=== PATIENT | female | born 1960 | race Caucasian/White ===

== ENCOUNTER → 2016-12-17 | Outpatient (CLI) | payer BC ==
--- NOTE | 2016-12-17 15:59 | RADIOLOGY REPORT (SQ) ---
EXAM DESCRIPTION: MRI LT LOWER JOINT WITHOUT COMPLETED DATE/TIME: 12/17/2016 3:28 pm REASON FOR STUDY: PAIN IN LEFT KNEE (M25.562) M25.561 PAIN IN RIGHT KNEE M25.562 PAIN IN LEFT KNEE COMPARISON: None. TECHNIQUE: Leftknee images acquired and stored on PACS. Multiplanar images include fat sensitive se quences as T1, water sensitive sequences as FST2 or STIR, cartilage sensitive sequences as FSPD, and gradient echo sequences. LIMITATIONS: Patient motion. FINDINGS: JOINT AND BURSAE: No effusion. BONE CORTEX AND MARROW: No alteration of signal to suggest marrow replacement. No worrisome bone lesi ons. No occult fracture. ACL: Intact. No degeneration or ganglion cyst. PCL: Intact. MCL: Intact. No periligamentous edema or fluid. LCL: Intact. No periligamentous edema or fluid. MEDIAL MENISCUS: Increased T2 signal posterior horn extends to the articular surface in the axial andreia ne. No displaced meniscal fragment identified. LATERAL MENISCUS: No tears. No abnormal signal. MEDIAL COMPARTMENT: Thinning of the articular cartilage. Subchondral cyst formation femoral condyle. Small osteophytes. LATERAL COMPARTMENT: Thinning of the articular cartilage. PATELLA: Thinning of the articular cartilage. Intact retinaculum. EXTENSOR MECHANISM: Intact. Quadriceps and patella tendons normal. SOFT TISSUES: Small amount of fluid between the medial head of the gastrocnemius and semimembranosus tendons extends into the superficial fascia. Maximum diameter 2 cm. OTHER: No other significant finding. IMPRESSION: 1. Technical limitations due to motion. 2. Horizontal tear posterior horn medial meniscus. 3. Chondromalacia. 4. Ruptured Plunkett cyst. TECHNICAL DOCUMENTATION: JOB ID: [id number] [employer]- All Rights Reserved
--- NOTE | 2016-12-17 16:19 | RADIOLOGY REPORT (SQ) ---
EXAM DESCRIPTION: MRI RT LOWER JOINT WITHOUT COMPLETED DATE/TIME: 12/17/2016 3:29 pm REASON FOR STUDY: PAIN IN RIGHT KNEE (M25.561) M25.561 PAIN IN RIGHT KNEE M25.562 PAIN IN LEFT KNE E COMPARISON: None. TECHNIQUE: Rightknee images acquired and stored on PACS. Multiplanar images include fat sensitive s equences as T1, water sensitive sequences as FST2 or STIR, cartilage sensitive sequences as FSPD, and gradient echo sequences. LIMITATIONS: Patient motion. FINDINGS: JOINT AND BURSAE: No effusion. BONE CORTEX AND MARROW: No alteration of signal to suggest marrow replacement. No worrisome bone lesi ons. No occult fracture. ACL: Intact. No degeneration or ganglion cyst. PCL: Intact. MCL: Intact. No periligamentous edema or fluid. LCL: Intact. No periligamentous edema or fluid. MEDIAL MENISCUS: Diminutive. Increased signal posterior horn extends to the articular surface in the axial plane. No displaced meniscal fragment identified. LATERAL MENISCUS: Intact. MEDIAL COMPARTMENT: Cartilage loss. Small osteophytes. Subchondral edema anteromedial margin femora l condyle. LATERAL COMPARTMENT: Cartilage relatively preserved. No bone bruises or reactive marrow edema. No ost eophytes. PATELLA: Thinning of the patellar cartilage with surface blistering medial to midline. Small osteoph ytes. Intact retinaculum. EXTENSOR MECHANISM: Intact. Quadriceps and patella tendons normal. SOFT TISSUES: Adjacent muscles and subcutaneous tissues normal. Normal flow void in popliteal artery and vein. OTHER: No other significant finding. IMPRESSION: 1. Technical limitations due to motion. 2. Horizontal tear posterior horn medial meniscus. 3. Chondromalacia. 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 TECHNICAL DOCUMENTATION: JOB ID: [id number] [employer]- All Rights Reserved
== END ==
LOC: RAD 14:00
PROVIDERS: ATTEND Physician Assistant
DX: M25.561 Pain in right knee (principal); M25.562 Pain in left knee; M94.261 Chondromalacia, right knee; M94.262 Chondromalacia, left knee

== ENCOUNTER 2017-06-23 13:18 | Inpatient (IN) | payer BC, OTHER ==
--- NOTE | 2017-06-23 15:03 | ER Document Report ---
ED Medical Screen (RME) - General Chief Complaint: Abdominal Pain Stated Complaint: ABDOMINAL PAIN Time Seen by Provider: 06/23/17 15:02 Mode of Arrival: Ambulatory Information source: Patient Notes: two days of ruq pain/nausea. no prev surgeries TRAVEL OUTSIDE OF THE [place] IN LAST 30 DAYS: No - Related Data Allergies/Adverse Reactions: No Known Allergies Allergy (Unverified 06/23/17 13:20) Past Medical History - Social History Frequency of alcohol use: None Drug Abuse: None Renal/ Medical History: Denies: Hx Peritoneal Dialysis Physical Exam - Vital signs Vitals: Temp Pulse Resp BP Pulse Ox 98.5 F 89 20 123/75 97 06/23/17 13:31 06/23/17 13:31 06/23/17 13:31 06/23/17 13:31 06/23/17 13:31 Course - Vital Signs Vital signs: Temp Pulse Resp BP Pulse Ox 98.5 F 89 20 123/75 97 06/23/17 13:31 06/23/17 13:31 06/23/17 13:31 06/23/17 13:31 06/23/17 13:31
[2017-06-23 15:35] LABS: ABSOLUTE EOSINOPHILS # (AUTO) 0.1 10^3/uL (0.0-0.6); ABSOLUTE MONOCYTES (AUTO) 0.5 10^3/uL (0.1-1.4); ABSOLUTE NEUT (AUTO) 7.9 10^3/uL (1.7-8.2); BASOPHILS % (AUTO) 0.5 % (0-2); EOSINOPHILS % (AUTO) 1.1 % (0-6); HEMOGLOBIN 14.3 g/dL (12.0-15.5); LYMPHOCYTES % (AUTO) 10.6 % (13-45); MEAN CORPUSCULAR HEMOGLOBIN 29.4 pg (27.0-33.4); MEAN CORPUSCULAR HGB CONC 34.1 g/dL (32.0-36.0); MEAN CORPUSCULAR VOLUME 86 fl (80-97); MONOCYTES % (AUTO) 4.8 % (3-13); PLATELET COUNT 266 10^3/uL (150-450); RED BLOOD COUNT 4.87 10^6/uL (3.72-5.28); RED CELL DISTRIBUTION WIDTH 13.7 % (11.5-14.0); TOTAL CELLS COUNTED % (AUTO) 100 %; WHITE BLOOD COUNT 9.6 10^3/uL (4.0-10.5)
[2017-06-23 15:40] LABS: APPEARANCE,URINE CLEAR; BILIRUBIN,URINE NEGATIVE (NEGATIVE); COLOR,URINE STRAW; GLUCOSE, URINE NEGATIVE (NEGATIVE); KETONES,URINE NEGATIVE (NEGATIVE); LEUKOCYTE ESTERASE,URINE NEGATIVE (NEGATIVE); NITRITE,URINE NEGATIVE (NEGATIVE); PROTEIN,URINE NEGATIVE (NEGATIVE); URINE SPECIFIC GRAVITY 1.003; UROBILINOGEN,URINE NEGATIVE mg/dL (<2.0)
[2017-06-23 15:55] LABS: BLOOD UREA NITROGEN 16 mg/dL (7-20); CALCIUM 9.6 mg/dL (8.4-10.2)
--- NOTE | 2017-06-23 15:55 | ER Document Report ---
ED GI/ - General Mode of Arrival: Ambulatory TRAVEL OUTSIDE OF THE [place] IN LAST 30 DAYS: No <OSIEL WILEY - Last Filed: 06/24/17 09:28> <PHILLIPANDREE Melinda - Last Filed: 06/24/17 09:32> - General Chief Complaint: Abdominal Pain Stated Complaint: ABDOMINAL PAIN Time Seen by Provider: 06/23/17 15:02 Notes: Patient is a 57 year old female presenting to the emergency department complaining of right upper quadrant abdominal pain onset last night. Patient states that her pain is only exacerbated after meals and describes it as sharp which radiates into her right shoulder. Patient further states that she has had similar episodes 2x this month. Patient denies a history of VT, Strokes, or gallbladder issues. Patient states she is currently on Zoloft. (OSIEL WILEY) - Related Data Allergies/Adverse Reactions: No Known Allergies Allergy (Unverified 06/23/17 13:20) Past Medical History - General Information source: Patient - Social History Smoking Status: Current Every Day Smoker Frequency of alcohol use: None Drug Abuse: None Family History: Reviewed & Not Pertinent Patient has suicidal ideation: No Patient has homicidal ideation: No <OSIEL WILEY - Last Filed: 06/24/17 09:28> Review of Systems - Review of Systems Constitutional: No symptoms reported EENT: No symptoms reported Cardiovascular: No symptoms reported Respiratory: No symptoms reported Gastrointestinal: See HPI, Abdominal pain Genitourinary: No symptoms reported Female Genitourinary: No symptoms reported Musculoskeletal: See HPI Skin: No symptoms reported Hematologic/Lymphatic: No symptoms reported Neurological/Psychological: No symptoms reported -: Yes All other systems reviewed and negative <OSIEL WILEY - Last Filed: 06/24/17 09:28> Physical Exam - General General appearance: Appears well, Alert In distress: None - HEENT Head: Normocephalic, Atraumatic Eyes: Normal Conjunctiva: Normal Pupils: PERRL Mucous membranes: Moist Neck: Normal - Respiratory Respiratory status: No respiratory distress Chest status: Nontender Breath sounds: Normal Chest palpation: Normal - Cardiovascular Rhythm: Regular Heart sounds: Normal auscultation Murmur: No Friction rub: No Gallop: None auscultated - Abdominal Inspection: Normal Distension: No distension Bowel sounds: Normal Tenderness: Tender - RUQ Organomegaly: No organomegaly - Back Back: Normal - Extremities General upper extremity: Normal inspection, Normal ROM General lower extremity: Normal inspection, Normal ROM - Neurological Neuro grossly intact: Yes Cognition: Normal Orientation: AAOx4 Julian Coma Scale Eye Opening: Spontaneous Julian Coma Scale Verbal: Oriented Julian Coma Scale Motor: Obeys Commands Mario Coma Scale Total: 15 Speech: Normal - Psychological Associated symptoms: Normal affect, Normal mood - Skin Skin Temperature: Warm Skin Moisture: Dry Skin Color: Normal <OSIEL WILEY - Last Filed: 06/24/17 09:28> - Vital signs Vitals: Temp Pulse Resp BP Pulse Ox 98.5 F 89 20 123/75 97 06/23/17 13:31 06/23/17 13:31 06/23/17 13:31 06/23/17 13:31 06/23/17 13:31 Course - Laboratory Result Diagrams: 06/23/17 15:09 06/23/17 15:09 - Consults Dr. Vera Time consulted: 16:48 - Dr. Vera states he will see the patient. 17:12; Dr. Vera agrees to admit patient to surgery. <OSIEL WILEY - Last Filed: 06/24/17 09:28> - Laboratory Result Diagrams: 06/23/17 15:09 06/23/17 15:09 <ANDREE FISHER - Last Filed: 06/24/17 09:32> - Vital Signs Vital signs: Temp Pulse Resp BP Pulse Ox 97.5 F 56 L 16 90/51 L 93 06/24/17 07:36 06/24/17 07:36 06/24/17 07:36 06/24/17 07:36 06/24/17 07:36 - Laboratory Laboratory results interpreted by me: 06/23/17 06/23/17 15:09 15:09 Seg Neutrophils % 83.0 H Lymphocytes % 10.6 L AST 341 H ALT 474 H Alkaline Phosphatase 134 H Lipase 8562.4 H Discharge - Discharge Admitting Provider: Chuy Unit Admitted: Surgical Floor <OSIEL WILEY - Last Filed: 06/24/17 09:28> <ANDREE FISHER - Last Filed: 06/24/17 09:32> - Discharge Clinical Impression: Gallstone pancreatitis Condition: Stable Disposition: ADMITTED INPATIENT Scribe Attestation: 06/24/17 09:32 I personally performed the services described documentation, reviewed and edited the documentation which was dictated to describe my presence, and it accurately records my words and actions. (ANDREE FISHER) Scribe Documentation - Scribe Written by Scribe:: Zacarias Hernandez, 06/23/2017 15:55 acting as scribe for :: Phillip <OSIEL WILEY - Last Filed: 06/24/17 09:28>
[2017-06-23 15:56] LABS: ALANINE AMINOTRANSFERASE 474 U/L (9-52); ALBUMIN 4.3 g/dL (3.5-5.0); ALKALINE PHOSPHATASE 134 U/L (38-126); ANION GAP 13 (5-19); ASPARTATE AMINO TRANSFERASE 341 U/L (14-36); BILIRUBIN,DIRECT 0.3 mg/dL (0.0-0.4); BILIRUBIN,TOTAL 0.7 mg/dL (0.2-1.3); CARBON DIOXIDE 23 mmol/L (22-30); CHLORIDE 106 mmol/L (98-107); GLUCOSE 83 mg/dL (75-110); POTASSIUM 4.6 mmol/L (3.6-5.0); SODIUM 141.6 mmol/L (137-145); TOTAL PROTEIN 6.4 g/dL (6.3-8.2)
[2017-06-23 16:24] LABS: LIPASE 8562.4 U/L (23-300)
--- NOTE | 2017-06-23 16:40 | RADIOLOGY REPORT (SQ) ---
EXAM DESCRIPTION: U/S ABDOMEN LIMITED W/O DOP COMPLETED DATE/TIME: 06/23/2017 4:32 pm REASON FOR STUDY: ruq pain COMPARISON: None. TECHNIQUE: Dynamic and static grayscale images acquired of the abdomen and recorded on PACS. Additio nal selected color Doppler and spectral images recorded. LIMITATIONS: Midline bowel gas FINDINGS: PANCREAS: Midline pancreas unremarkable LIVER: No masses. Echotexture normal. LIVER VASCULATURE: Normal directional flow of the main portal vein and hepatic veins. GALLBLADDER: Multiple tiny stones in the dependent portion of the gallbladder. Mild gallbladder wall thickening, 3 mm. There is adenomyosis of the gallbladder. ULTRASOUND-DETECTED PARKER'S SIGN: Negative. INTRAHEPATIC DUCTS AND COMMON DUCT: No intrahepatic biliary ductal dilatation. Common bile duct at t he enzo hepatis 5 mm in diameter. Distal most common duct not well seen due to duodenum gas. INFERIOR VENA CAVA: Normal flow. AORTA: No aneurysm. RIGHT KIDNEY: Normal size. Normal echogenicity. No solid or suspicious masses. No hydronephrosis. No calcifications. PERITONEAL AND RIGHT PLEURAL SPACE: No ascites or effusions. OTHER: No other significant findings. IMPRESSION: Multiple tiny gallstones in the gallbladder. Gallbladder wall thickening with adenomyosis Negative sonographic Parker's sign TECHNICAL DOCUMENTATION: JOB ID: [id number] [employer]- All Rights Reserved
--- NOTE | 2017-06-23 18:10 | EKG REPORT ---
SEVERITY:- BORDERLINE ECG - SINUS RHYTHM IVCD : Confirmed by: Philip Harris MD 23-Jun-2017 18:09:56
[2017-06-23] MEDS ORDERED: INFLUENZA ADLT QUAD (36MOS+) 2017-18 VAC 0.5 ML SYR IM PRN (18:43)
--- NOTE | 2017-06-23 19:25 | PDOC H&P ---
History of Present Illness Admission Date/PCP: 06/23/17 17:31 History of Present Illness: JUDI MAXWELL is a 57 year old female seen in the emergency department complaining of 2 day history of abdominal pain epigastric right upper quadrant without radiation. No vomiting but some nausea and anorexia. She has had intermittent constipation. She had several previous episodes within the last 2 months but not quite as persistent although as intense as today's episode. She was evaluated emergency department where she went gall bladder ultrasonography which showed multiple gallstones, thickened gallbladder wall. Hepatic duct was approximately 5 mm, distal common bile duct not visualized. Radiologist suggested adenomyosis of the gallbladder, and cholecystitis. Surgery was a consulted, and patient was advised admission for management of cholecystitis, cholelithiasis, and pancreatitis. Past Medical History Psychiatric Medical History: Reports: Depression Past Surgical History Past Surgical History: Reports: Other - None; patient has never had a colonoscopy Social History Smoking Status: Current Some Day Smoker Cigarettes Packs Per Day: 0.5 Number of Years Smokin Frequency of Alcohol Use: None Hx Recreational Drug Use: No Drugs: None Hx Prescription Drug Abuse: No Family History Family History: Other - Family history of gallbladder disease. Parental Family History Reviewed: Yes Children Family History Reviewed: Yes Sibling(s) Family History Reviewed.: Yes Medication/Allergy Home Medications: Meloxicam [Mobic] 15 mg PO DAILY 06/23/17 Sertraline HCl [Zoloft] 100 mg PO DAILY 06/23/17 Allergies/Adverse Reactions: No Known Allergies Allergy (Unverified 06/23/17 13:20) Review of Systems Constitutional: PRESENT: as per HPI Eyes: ABSENT: visual disturbances Ears: ABSENT: hearing changes Cardiovascular: ABSENT: chest pain, dyspnea on exertion, edema, orthropnea, palpitations Respiratory: ABSENT: cough, hemoptysis Gastrointestinal: ABSENT: abdominal pain, constipation, diarrhea, hematemesis, hematochezia, nausea, vomiting Genitourinary: ABSENT: dysuria, hematuria Musculoskeletal: ABSENT: joint swelling Psychiatric: ABSENT: anxiety, depression, homidical ideation, suicidal ideation Endocrine: ABSENT: cold intolerance, heat intolerance, polydipsia, polyuria Physical Exam Vital Signs: Temp Pulse Resp BP Pulse Ox 98.5 F 89 20 123/75 97 06/23/17 13:31 06/23/17 13:31 06/23/17 13:31 06/23/17 13:31 06/23/17 13:31 Intake & Output 06/22/17 06/23/17 06/24/17 06:59 06:59 06:59 Weight 95.254 kg General appearance: PRESENT: mild distress Head exam: PRESENT: normocephalic Eye exam: PRESENT: EOMI Ear exam: PRESENT: normal external ear exam Mouth exam: PRESENT: dry mucosa Neck exam: PRESENT: full ROM Respiratory exam: PRESENT: rhonchi Cardiovascular exam: PRESENT: RRR Pulses: PRESENT: normal carotid pulses, normal radial pulses, normal femoral pulses GI/Abdominal exam: PRESENT: other - Tender right upper quadrant with mild guarding. No rigidity. No scars no hernia. Rectal exam: PRESENT: deferred Extremities exam: PRESENT: full ROM, other - Mild edema of the ankles Neurological exam: PRESENT: alert, altered, awake Psychiatric exam: PRESENT: appropriate affect Results Impressions: Abdomen Ultrasound 06/23/17 15:02 IMPRESSION: Multiple tiny gallstones in the gallbladder. Gallbladder wall thickening with adenomyosis Negative sonographic Parker's sign Assessment & Plan - Diagnosis (1) Gallstone pancreatitis Is this a current diagnosis for this admission?: Yes Plan: Patient's clinical presentation, physical examination, and laboratory profile is consistent with gallstone pancreatitis. Her pain is improved but not resolved. She may have a retained common bile duct stone. She has no evidence of cholangitis, sepsis, etc. Recommendations: 1. Admission, n.p.o., IV fluids, pain management, intravenous antibiotics 2. Check liver function studies in a.m. If continue to improve, and patient less symptomatic, then proceed with laparoscopic cholecystectomy with intraoperative cholangiography. 3. Conversely if liver function studies not improved, and patient remains symptomatic, then consider ERCP, sphincterotomy, stone extraction if common bile duct stone present. There are more if pancreatitis does not resolve based on persisting elevated lipase, may need additional bowel rest. I explained above to the patient, I believe she understands and agrees to proceed. (2) Smoker Is this a current diagnosis for this admission?: Yes (3) Anxiety Is this a current diagnosis for this admission?: Yes - Time Time Spent: 50 to 70 Minutes Critical Time spent with patient: 15-24 minutes Medications reviewed and adjusted accordingly: Yes Anticipated discharge: Home - Inpatient Certification Based on my medical assessment, after consideration of the patient's comorbidities, presenting symptoms, or acuity I expect that the services needed warrant INPATIENT care.: Yes I certify that my determination is in accordance with my understanding of Medicare's requirements for reasonable and necessary INPATIENT services [42 CFR 412.3e].: Yes Medical Necessity: Need For IV Fluids, Need for Pain Control, Need for IV Antibiotics, Need for Surgery
[2017-06-23] MEDS: ONDANSETRON HCL INJ/PF 4 MG/2 ML SDV IV PRN (21:02)
[2017-06-23] MEDS: KETOROLAC TROMETHAMINE INJ/PF 30 MG/1 ML SDV IV PRN (21:03)
[2017-06-23] MEDS: RINGERS SOLUTION,LACTATED 1,000 ML IV PRN (21:03)
[2017-06-23] MEDS: AMPICILLIN SODIUM/SULBACTAM NA 3 GM in NORMAL SALINE 100 ML IV SCH (22:22)
[2017-06-24 05:35] LABS: ALANINE AMINOTRANSFERASE 300 U/L (9-52); ALBUMIN 3.3 g/dL (3.5-5.0); ALKALINE PHOSPHATASE 112 U/L (38-126); ASPARTATE AMINO TRANSFERASE 146 U/L (14-36); BILIRUBIN,DIRECT 0.2 mg/dL (0.0-0.4); BILIRUBIN,TOTAL 0.6 mg/dL (0.2-1.3); TOTAL PROTEIN 5.1 g/dL (6.3-8.2)
[2017-06-24] MEDS: AMPICILLIN SODIUM/SULBACTAM NA 3 GM in NORMAL SALINE 100 ML IV SCH ×3 (05:56→22:29)
[2017-06-24 05:59] LABS: LIPASE 4116.7 U/L (23-300)
[2017-06-24] MEDS: ONDANSETRON HCL INJ/PF 4 MG/2 ML SDV IV PRN (07:45)
[2017-06-24] MEDS: KETOROLAC TROMETHAMINE INJ/PF 30 MG/1 ML SDV IV PRN ×3 (07:46→20:57)
[2017-06-24] MEDS: RINGERS SOLUTION,LACTATED 1,000 ML IV PRN ×3 (07:47→20:57)
--- NOTE | 2017-06-24 10:20 | PDOC PROGRESS REPORT ---
Subjective Progress Note for:: 06/24/17 Subjective:: right upper abdominal pain with nausea Reason For Visit: GALLSTONE PANCREATITIS Physical Exam Vital Signs: Temp Pulse Resp BP Pulse Ox 97.5 F 56 L 16 90/51 L 93 06/24/17 07:36 06/24/17 07:36 06/24/17 07:36 06/24/17 07:36 06/24/17 07:36 Intake & Output 06/23/17 06/24/17 06/25/17 06:59 06:59 06:59 Weight 95.254 kg General appearance: PRESENT: mild distress Respiratory exam: PRESENT: clear to auscultation sudhir Cardiovascular exam: PRESENT: RRR GI/Abdominal exam: PRESENT: distended, tenderness - right upper quadrant Results Laboratory Results: 06/24/17 04:45 Total Bilirubin 0.6 AST 146 H ALT 300 H Alkaline Phosphatase 112 Total Protein 5.1 L Albumin 3.3 L Lipase 4116.7 H Impressions: Abdomen Ultrasound 06/23/17 15:02 IMPRESSION: Multiple tiny gallstones in the gallbladder. Gallbladder wall thickening with adenomyosis Negative sonographic Parker's sign Assessment & Plan - Diagnosis (1) Gallstone pancreatitis Is this a current diagnosis for this admission?: Yes - Plan Summary Plan Summary: A/ abdominal pain elevated LFT's and Lipase Cholelithiasis on US Probable gallstone pancreatitis as per above results P/ Continue NPO, IVF Continue IV abx monitor CBC, LFT, amylase/lipase daily MRCP today patient to undergo laparoscopic cholecystectomy in 2-3 days as the pancreatitis regresses
[2017-06-24] MEDS ORDERED: LORAZEPAM INJ 2 MG/1 ML VIAL IV ONE (10:39)
--- NOTE | 2017-06-24 13:30 | RADIOLOGY REPORT (SQ) ---
EXAM DESCRIPTION: MRI ABDOMEN WITHOUT COMPLETED DATE/TIME: 06/24/2017 12:50 pm REASON FOR STUDY: MRCP. gallstone pancreat, r/o biliary obstruction COMPARISON: Right upper quadrant ultrasound 06/23/2017 TECHNIQUE: Noncontrast MRCP. Source and MIP images reviewed. LIMITATIONS: None. FINDINGS: GALLBLADDER: Multiple tiny stones layer dependently in the gallbladder. No gallbladder wa ll thickening or pericholecystic fluid. INTRAHEPATIC DUCTS: Nondilated. EXTRAHEPATIC DUCTS: Common duct is normal caliber. No dilatation of the pancreatic duct. No ductal filling defects noted. PANCREAS: Generally homogeneous, no gross mass or significant signal alteration. No surrounding infl ammatory changes or fluid. Pancreatic duct is normal. LIVER, SPLEEN, KIDNEYS, ADRENALS: No significant abnormality. Incidental finding of parapelvic cysts along the left lower pole kidney. VESSELS: No evidence of aneurysm. Grossly appropriate flow voids in the major vascular structures. IMPRESSION: Multiple tiny stones in the dependent portion of gallbladder. No gallbladder wall thick ening or pericholecystic fluid. MRCP images demonstrate no filling defects in the common hepatic or common bile duct worrisome for du ctal stones. No pancreatic ductal dilatation. TECHNICAL DOCUMENTATION: JOB ID: [id number] [employer]- All Rights Reserved
[2017-06-24] MEDS ORDERED: SERTRALINE HCL 50 MG TABLET PO ONE (20:00)
[2017-06-24] MEDS ORDERED: MELOXICAM 15 MG TABLET PO ONE (20:00)
[2017-06-25] MEDS: KETOROLAC TROMETHAMINE INJ/PF 30 MG/1 ML SDV IV PRN ×3 (02:46→20:52)
[2017-06-25] MEDS: RINGERS SOLUTION,LACTATED 1,000 ML IV PRN ×3 (02:46→19:28)
[2017-06-25] MEDS: AMPICILLIN SODIUM/SULBACTAM NA 3 GM in NORMAL SALINE 100 ML IV SCH ×3 (05:35→21:32)
[2017-06-25 06:52] LABS: ALANINE AMINOTRANSFERASE 188 U/L (9-52); ALBUMIN 2.9 g/dL (3.5-5.0); ALKALINE PHOSPHATASE 121 U/L (38-126); AMYLASE 126 U/L (30-110); ANION GAP 8 (5-19); ASPARTATE AMINO TRANSFERASE 63 U/L (14-36); BILIRUBIN,DIRECT 0.5 mg/dL (0.0-0.4); BILIRUBIN,TOTAL 0.5 mg/dL (0.2-1.3); BLOOD UREA NITROGEN 16 mg/dL (7-20); CALCIUM 8.3 mg/dL (8.4-10.2); CARBON DIOXIDE 23 mmol/L (22-30); CHLORIDE 109 mmol/L (98-107); GLUCOSE 68 mg/dL (75-110); LIPASE 1018.9 U/L (23-300); POTASSIUM 4.2 mmol/L (3.6-5.0); TOTAL PROTEIN 5.1 g/dL (6.3-8.2)
[2017-06-25 07:14] LABS: HEMATOCRIT 33.8 % (36.0-47.0); MEAN CORPUSCULAR HEMOGLOBIN 29.4 pg (27.0-33.4); MEAN CORPUSCULAR HGB CONC 34.1 g/dL (32.0-36.0); MEAN CORPUSCULAR VOLUME 86 fl (80-97); PLATELET COUNT 182 10^3/uL (150-450); RED BLOOD COUNT 3.92 10^6/uL (3.72-5.28); RED CELL DISTRIBUTION WIDTH 13.4 % (11.5-14.0); WHITE BLOOD COUNT 6.5 10^3/uL (4.0-10.5)
[2017-06-25 08:55] LABS: HEMOGLOBIN 11.5 g/dL (12.0-15.5)
[2017-06-25] MEDS: SERTRALINE HCL 50 MG TABLET PO SCH (10:16)
[2017-06-25] MEDS: MELOXICAM 15 MG TABLET PO SCH (10:16)
--- NOTE | 2017-06-25 10:53 | PDOC PROGRESS REPORT ---
Subjective Progress Note for:: 06/25/17 Subjective:: patient still c/o mild cramp-like abdominal discomfort after ingestion of ice or sips of water Reason For Visit: GALLSTONE PANCREATITIS Physical Exam Vital Signs: Temp Pulse Resp BP Pulse Ox 98.3 F 59 L 18 119/69 94 06/25/17 07:36 06/25/17 07:36 06/25/17 07:36 06/25/17 07:36 06/25/17 07:36 Intake & Output 06/24/17 06/25/17 06/26/17 06:59 06:59 06:59 Intake Total 30 Output Total 400 Balance -370 Weight 95.254 kg General appearance: PRESENT: no acute distress Respiratory exam: PRESENT: clear to auscultation sudhir Cardiovascular exam: PRESENT: RRR GI/Abdominal exam: PRESENT: hypoactive bowel sounds, soft Results Laboratory Results: 06/25/17 04:03 06/25/17 04:03 06/25/17 06/25/17 04:03 04:03 WBC 6.5 RBC 3.92 Hgb 11.5 L D Hct 33.8 L MCV 86 MCH 29.4 MCHC 34.1 RDW 13.4 Plt Count 182 Sodium 140.0 Potassium 4.2 Chloride 109 H Carbon Dioxide 23 Anion Gap 8 BUN 16 Creatinine 0.64 Est GFR ( Amer) > 60 Est GFR (Non-Af Amer) > 60 Glucose 68 L Calcium 8.3 L Total Bilirubin 0.5 AST 63 H ALT 188 H Alkaline Phosphatase 121 Total Protein 5.1 L Albumin 2.9 L Amylase 126 H Lipase 1018.9 H Impressions: Abdomen Ultrasound 06/23/17 15:02 IMPRESSION: Multiple tiny gallstones in the gallbladder. Gallbladder wall thickening with adenomyosis Negative sonographic Parker's sign Abdomen MRI 06/24/17 00:00 IMPRESSION: Multiple tiny stones in the dependent portion of gallbladder. No gallbladder wall thickening or pericholecystic fluid. MRCP images demonstrate no filling defects in the common hepatic or common bile duct worrisome for ductal stones. No pancreatic ductal dilatation. Assessment & Plan - Diagnosis (1) Gallstone pancreatitis Is this a current diagnosis for this admission?: Yes - Plan Summary Plan Summary: A/ Gallstone pancreatitis MRCP shows cholelithiasis, negative for bile duct dilatation or stones improved LFT and Lipase Abdomen soft P/ Continue NPO/IVF Plan laparoscopic cholecystectomy, possible open, possible cholangiogram tomorrow 06/26/17 Procedure risks, benefits, complications including bleeding from the liver and injury of the common bile duct requiring transfer to a tertiary center for open repia hav been explained to the patient, she understands all of the, her questions were answered, and she decides to proceed.
[2017-06-25] MEDS: ACETAMINOPHEN 325 MG TABLET PO PRN (16:53)
[2017-06-25] MEDS ORDERED: ACETAMINOPHEN 325 MG TABLET ONE (16:53)
[2017-06-26] MEDS: RINGERS SOLUTION,LACTATED 1,000 ML IV PRN (02:08)
[2017-06-26] MEDS: AMPICILLIN SODIUM/SULBACTAM NA 3 GM in NORMAL SALINE 100 ML IV SCH (05:06)
[2017-06-26 05:12] LABS: ABSOLUTE EOSINOPHILS # (AUTO) 0.2 10^3/uL (0.0-0.6); ABSOLUTE LYMPHOCYTES (AUTO) 1.8 10^3/uL (0.5-4.7); ABSOLUTE MONOCYTES (AUTO) 0.5 10^3/uL (0.1-1.4); ABSOLUTE NEUT (AUTO) 3.2 10^3/uL (1.7-8.2); BASOPHILS % (AUTO) 0.7 % (0-2); EOSINOPHILS % (AUTO) 3.8 % (0-6); HEMATOCRIT 33.3 % (36.0-47.0); HEMOGLOBIN 11.5 g/dL (12.0-15.5); LYMPHOCYTES % (AUTO) 30.9 % (13-45); MEAN CORPUSCULAR HEMOGLOBIN 29.7 pg (27.0-33.4); MEAN CORPUSCULAR HGB CONC 34.6 g/dL (32.0-36.0); MEAN CORPUSCULAR VOLUME 86 fl (80-97); MONOCYTES % (AUTO) 8.8 % (3-13); PLATELET COUNT 179 10^3/uL (150-450); RED BLOOD COUNT 3.88 10^6/uL (3.72-5.28); RED CELL DISTRIBUTION WIDTH 13.3 % (11.5-14.0); SEGMENTED NEUTROPHILS % (AUTO) 55.8 % (42-78); TOTAL CELLS COUNTED % (AUTO) 100 %; WHITE BLOOD COUNT 5.7 10^3/uL (4.0-10.5)
[2017-06-26 05:35] LABS: ALANINE AMINOTRANSFERASE 139 U/L (9-52); ALKALINE PHOSPHATASE 141 U/L (38-126); AMYLASE 61 U/L (30-110); ANION GAP 9 (5-19); ASPARTATE AMINO TRANSFERASE 35 U/L (14-36); BILIRUBIN,DIRECT 0.5 mg/dL (0.0-0.4); BILIRUBIN,TOTAL 0.5 mg/dL (0.2-1.3); BLOOD UREA NITROGEN 11 mg/dL (7-20); CALCIUM 8.4 mg/dL (8.4-10.2); CARBON DIOXIDE 23 mmol/L (22-30); CHLORIDE 106 mmol/L (98-107); GLUCOSE 59 mg/dL (75-110); LIPASE 420.5 U/L (23-300); POTASSIUM 3.9 mmol/L (3.6-5.0); TOTAL PROTEIN 5.2 g/dL (6.3-8.2)
[2017-06-26] MEDS ORDERED: ROCURONIUM BROMIDE INJ 50 MG/5 ML VIAL IV ONE (08:19)
[2017-06-26] MEDS ORDERED: SUCCINYLCHOLINE CHLORIDE INJ 200 MG/10 ML VIAL ONE (08:19)
[2017-06-26] MEDS ORDERED: HYDROMORPHONE HCL INJ/PF 2 MG/ML AMPULE ONE (08:26)
[2017-06-26] MEDS ORDERED: FENTANYL CITRATE INJ/PF 100 MCG/2 ML AMPUL ONE ×2 (08:26→10:49)
[2017-06-26] MEDS ORDERED: ACETAMINOPHEN 100 ML IV ONE (08:27)
[2017-06-26] MEDS ORDERED: DEXAMETHASONE SOD PHOSPHATE INJ 4 MG/1 ML VIAL ONE (08:27)
[2017-06-26] MEDS ORDERED: PROPOFOL INJ 200 MG/20 ML VIAL IV ONE (08:27)
[2017-06-26] MEDS ORDERED: MIDAZOLAM 2 MG/2 ML INJ ONE (08:27)
[2017-06-26] MEDS ORDERED: ONDANSETRON HCL INJ/PF 4 MG/2 ML SDV ONE (08:27)
[2017-06-26] MEDS ORDERED: BUPIVACAINE HCL 0.5%-EPI 1:200000 INJ/PF 30 ML VIAL ONE (08:35)
[2017-06-26] MEDS ORDERED: PROMETHAZINE HCL INJ 25 MG/1 ML VIAL IV PRN (09:22)
[2017-06-26] MEDS ORDERED: MORPHINE SULFATE 10 MG/ML INJ IV PRN (09:22)
[2017-06-26] MEDS ORDERED: MEPERIDINE HCL/PF INJ 25 MG/1 ML DISP.SYRIN IV PRN (09:22)
[2017-06-26] MEDS ORDERED: FENTANYL CITRATE INJ/PF 100 MCG/2 ML AMPUL IV PRN ×3 (09:22)
[2017-06-26] MEDS ORDERED: DIPHENHYDRAMINE HCL 50 MG/ML VIAL IV PRN (09:22)
[2017-06-26] MEDS ORDERED: ONDANSETRON HCL INJ/PF 4 MG/2 ML SDV IV PRN (09:22)
[2017-06-26] MEDS ORDERED: MICROFIBRILLAR COLLAGEN 1 GM PACK ONE (10:10)
--- NOTE | 2017-06-26 11:04 | Operative Report ---
Operative Report DATE OF SURGERY: 06/26/17 PREOPERATIVE DIAGNOSIS: gallstone pancreatitis POSTOPERATIVE DIAGNOSIS: same OPERATION: laparoscopic cholecystectomy SURGEON: ANDRÉS COLLADO 1ST STENCIL MACHINE OPERATOR: NURSE STUDENT ANESTHESIA: GA - plus 20 mL marcaine TISSUE REMOVED OR ALTERED: gallbladder COMPLICATIONS: none ESTIMATED BLOOD LOSS: 30 mL INTRAOPERATIVE FINDINGS: cholelithiasis PROCEDURE: see dictation
[2017-06-26] MEDS ORDERED: RINGERS SOLUTION,LACTATED 1,000 ML IV PRN (11:34)
[2017-06-26] MEDS ORDERED: FAMOTIDINE 20 MG TABLET PO ONE (12:00)
[2017-06-26] MEDS: HYDROMORPHONE HCL INJ/PF 2 MG/ML AMPULE IV PRN ×3 (12:02→20:37)
--- NOTE | 2017-06-26 14:18 | OPERATIVE REPORT E ---
Operative Report NAME: JUDI MAXWELL : 1960 AGE: 57Y DATE OF SURGERY: ROOM: 224 PREOPERATIVE DIAGNOSIS: Gallstone pancreatitis. POSTOPERATIVE DIAGNOSIS: Gallstone pancreatitis. OPERATION: Laparoscopic cholecystectomy. SURGEON: ANDRÉS COLLADO M.D. SAP BW BI DEVELOPER: None. BLEEDIN mL. COMPLICATIONS: None. ANESTHESIA: General plus 3 mL of 0.5% Marcaine with epinephrine. FLUIDS: 1300. URINE OUTPUT: n/a. DRAINS: None. INDICATIONS AND FINDINGS: This is a 57-year-old female with a history of right upper quadrant pain, epigastric pain, felt to have gallstone pancreatitis. MRCP which was negative. Her amylase, lipase, and liver enzymes were progressively improved. The patient was scheduled for a laparoscopic cholecystectomy, possible open, and possible cholangiogram on June 26, 2017. Procedures, benefits and complications explained to the patient including the possibility of bleeding from the liver and transfer that which may require repair. She understood and decided to proceed. PROCEDURE: Patient was brought to the operating room. Patient was placed in the supine position. General anesthesia induced by endotracheal intubation. The abdomen prepped and draped in the usual fashion. Four incisions were made, one over the umbilicus, one in the epigastrium, and two in the right upper quadrant. Through the umbilical incision the port was inserted using a 5 mm port and a 11 mm was inserted through the epigastric incision and another 5 mm port was placed and two 5 mm ports were placed in the right upper quadrant. The gallbladder was grasped at the fundus and retroflexed, and the neck of the gallbladder was pulled anterior towards the patient's right with exposure of the triangle of Calot. The critical view of safety was obtained. Peritoneal attachments medial and lateral to the level of the neck and infundibulum were divided, and dissection was then continued to identify the cystic duct. Once this was skeletonized, the cystic duct was doubly clipped proximally and distally and divided with scissors. The gallbladder was dissected off the liver bed using cautery and extracted with an Endobag. The pneumoperitoneum was reestablished. The liver bed was found to have a minimal amount of bleeding which was controlled with cautery, was irrigated with normal saline which was almost completely fully aspirated. No active bleeding was noted. A large piece, 4 x 8 inches of Surgicel was then placed through the epigastric port and placed in the gallbladder fossa. Following this, a wibskn-nu-rftrf #0 Vicryl suture was placed to close the epigastric fascial defect. All instruments were removed. The pneumoperitoneum was released. All ports were removed. The fascial defect in the epigastrium closed with #0 Vicryl suture. Skin incisions were closed with 4-0 Vicryl running subcuticular suture and Dermabond was applied. The patient tolerated the procedure well, extubated, and transferred to the recovery room in satisfactory condition. DICTATING PHYSICIAN: ANDRÉS COLLADO M.D. [id number] PHY#: [id number] ID: [id number] JOB#: [id number] ACCT: [id number] cc:ANDRÉS COLLADO M.D. > MTDD
[2017-06-26] MEDS: SERTRALINE HCL 50 MG TABLET PO SCH (15:26)
[2017-06-26] MEDS: MELOXICAM 15 MG TABLET PO SCH (15:26)
[2017-06-26] MEDS: PIPERACILLIN SODIUM/TAZOBACTAM 3.375 GM in NORMAL SALINE 100 ML IV SCH ×2 (16:05→20:37)
[2017-06-26] MEDS: NORMAL SALINE 1000 ML 1,000 ML IV PRN (18:21)
[2017-06-26] MEDS: FAMOTIDINE 20 MG TABLET PO SCH (19:32)
[2017-06-26] MEDS: KETOROLAC TROMETHAMINE INJ/PF 30 MG/1 ML SDV IV PRN (22:28)
[2017-06-26] MEDS: ACETAMINOPHEN 325 MG TABLET PO PRN (22:33)
[2017-06-26] MEDS: DIPHENHYDRAMINE HCL 25 MG CAPSULE PO PRN (23:11)
[2017-06-27] MEDS: PIPERACILLIN SODIUM/TAZOBACTAM 3.375 GM in NORMAL SALINE 100 ML IV SCH (02:32)
[2017-06-27] MEDS: HYDROMORPHONE HCL INJ/PF 2 MG/ML AMPULE IV PRN (02:47)
[2017-06-27] MEDS: NORMAL SALINE 1000 ML 1,000 ML IV PRN (03:44)
[2017-06-27 04:36] LABS: ABSOLUTE BASOPHILS # (AUTO) 0.1 10^3/uL (0.0-0.2); ABSOLUTE LYMPHOCYTES (AUTO) 0.8 10^3/uL (0.5-4.7); ABSOLUTE MONOCYTES (AUTO) 0.8 10^3/uL (0.1-1.4); ABSOLUTE NEUT (AUTO) 11.6 10^3/uL (1.7-8.2); BASOPHILS % (AUTO) 0.4 % (0-2); HEMATOCRIT 32.8 % (36.0-47.0); HEMOGLOBIN 11.1 g/dL (12.0-15.5); LYMPHOCYTES % (AUTO) 6.4 % (13-45); MEAN CORPUSCULAR HGB CONC 33.9 g/dL (32.0-36.0); MEAN CORPUSCULAR VOLUME 86 fl (80-97); MONOCYTES % (AUTO) 5.7 % (3-13); PLATELET COUNT 206 10^3/uL (150-450); RED BLOOD COUNT 3.83 10^6/uL (3.72-5.28); RED CELL DISTRIBUTION WIDTH 13.5 % (11.5-14.0); SEGMENTED NEUTROPHILS % (AUTO) 87.5 % (42-78); TOTAL CELLS COUNTED % (AUTO) 100 %
[2017-06-27 04:37] LABS: WHITE BLOOD COUNT 13.3 10^3/uL (4.0-10.5)
[2017-06-27 04:54] LABS: ALBUMIN 3.2 g/dL (3.5-5.0); AMYLASE 32 U/L (30-110); GLUCOSE 191 mg/dL (75-110); TOTAL PROTEIN 5.4 g/dL (6.3-8.2)
[2017-06-27 04:56] LABS: ALANINE AMINOTRANSFERASE 140 U/L (9-52); ALKALINE PHOSPHATASE 106 U/L (38-126); ANION GAP 9 (5-19); ASPARTATE AMINO TRANSFERASE 53 U/L (14-36); BILIRUBIN,DIRECT 0.4 mg/dL (0.0-0.4); BILIRUBIN,TOTAL 0.4 mg/dL (0.2-1.3); BLOOD UREA NITROGEN 12 mg/dL (7-20); CALCIUM 8.4 mg/dL (8.4-10.2); CARBON DIOXIDE 24 mmol/L (22-30); CHLORIDE 105 mmol/L (98-107); SODIUM 137.7 mmol/L (137-145)
[2017-06-27] MEDS: DIPHENHYDRAMINE HCL 25 MG CAPSULE PO PRN (05:30)
[2017-06-27] MEDS: KETOROLAC TROMETHAMINE INJ/PF 30 MG/1 ML SDV IV PRN (05:37)
[2017-06-27] MEDS: FAMOTIDINE 20 MG TABLET PO SCH (05:37)
[2017-06-27] MEDS ORDERED: ENOXAPARIN SODIUM INJ 40 MG/0.4 ML DISP.SYRIN SUBCUT SCH (10:00)
[2017-06-27] MEDS: MELOXICAM 15 MG TABLET PO SCH (10:43)
[2017-06-27] MEDS: SERTRALINE HCL 50 MG TABLET PO SCH (10:43)
[2017-06-27] MEDS: ACETAMINOPHEN 325 MG TABLET PO PRN (13:21)
[2017-06-27 15:43] VITALS: BP 96/56
--- NOTE | 2017-06-27 22:13 | DISCHARGE SUMMARY E ---
Discharge Summary NAME: JUDI MAXWELL : 1960 AGE: 57Y ADMITTED: 06/23/2017 DISCHARGED: 06/27/2017 REASON FOR ADMISSION: Gallstone pancreatitis. SUMMARY OF HOSPITALIZATION: The patient is a 57-year-old white female who was admitted to the surgical service for acute gallstone pancreatitis. Please see admission history and physical document. The patient was kept n.p.o. on IV fluids. Her lipase level settled down. She had minimal pain. Her liver function studies also stabilized. On 06/26/2017, she was taken to the operating room, where she underwent laparoscopic cholecystectomy. The patient tolerated the procedure well with no complications. The following day she was getting well. Support lines were discontinued, and she was ready for discharge home. FINAL DIAGNOSIS: Gallstone pancreatitis, status post laparoscopic cholecystectomy. DISPOSITION: The patient was discharged home in the care of family. Follow up with [facility] in approximately 1-2 weeks. She will take Tylenol or Motrin p.r.n. pain. DICTATING PHYSICIAN: BRANDAN BUTTS M.D. [id number] PHY#: [id number] ID: [id number] JOB#: [id number] ACCT: [id number] cc:Morteza BAJWA M.D. >
== END 2017-06-27 16:00 | disposition home or self-care (01) | DRG 419 ==
LOC: ER 13:18 → EH 17:31 → 2S 06-24 12:54
PROVIDERS: ADMIT Surgery; ATTEND Surgery
PROC: 0FT44ZZ Resection of Gallbladder, Percutaneous Endoscopic Approach (ICD-10-PCS; principal; 2017-06-26 09:00)
DX: K85.10 Biliary acute pancreatitis without necrosis or infection (principal); F41.9 Anxiety disorder, unspecified; F17.210 Nicotine dependence, cigarettes, uncomplicated
CPT/HCPCS: 36415; 74181; 76705; 790; 80053; 80076; 81001; 82150; 83690; 84484; 85025; 85027; 88304; 93005; 93010; 99285; J0131; J0295; J0330; J1100; J1170; J1885; J2060; J2250; J2405; J2543; J2704; J3010; J3490; J7030; J7120